=== PATIENT | male | born 1950 | race Caucasian/White ===

== ENCOUNTER 2017-01-09 15:36 | Emergency (ER) | payer OTHER ==
[~2017-01-09] VITALS: Ht 177.8 cm; Wt 95.0 kg
[~2017-01-09 15:36] MED LIST: COLC1TAB7 PO
[2017-01-09 16:50] VITALS: BP 175/96; PULSE 79; RESP 18; TEMP 98.5; O2SAT 96
[2017-01-09] MEDS ORDERED: ALLO100T PO (16:55)
[2017-01-09] MEDS ORDERED: COLC1CAP3 PO (16:55)
[2017-01-09] MEDS ORDERED: LISI-519 PO (16:55)
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
[2017-01-09] MEDS ORDERED: CYCL5TAB PO (20:51)
== END 2017-01-09 20:59 | disposition home or self-care (01) ==
LOC: PHEFT 15:36
DX: S39.012A Strain of muscle, fascia and tendon of lower back, initial encounter (principal); M54.2 Cervicalgia; M10.9 Gout, unspecified; V49.59XA Passenger injured in collision with other motor vehicles in traffic accident, initial encounter; Y93.89 Activity, other specified; Y92.411 Interstate highway as the place of occurrence of the external cause; Y99.0 Civilian activity done for income or pay
CPT/HCPCS: 70450; 71010; 72125; 72128; 72131; 99285